=== PATIENT | female | born 1980 | race Hispanic/Latino ===

== ENCOUNTER 2024-08-12 20:24 | Emergency (ER) | payer SELFPAY ==
[~2024-08-12] VITALS: Ht 152.4 cm; Wt 95.3 kg
[2024-08-12 20:27] VITALS: PULSE 84; RESP 16; TEMP 98.4
[2024-08-12] MEDS ORDERED: KETOROLAC TROME10 MG PO (21:36)
[2024-08-12] MEDS ORDERED: PREDNISONE20 MG PO (21:36)
[2024-08-12 21:46] VITALS: BP 120/70; PULSE 73; RESP 16; TEMP 98.1; O2SAT 100
== END 2024-08-12 21:48 | disposition home or self-care (01) ==
LOC: ER 20:27
DX: R68.84 Jaw pain (principal); R51.9 Headache, unspecified
CPT/HCPCS: 70450; 99284